=== PATIENT | male | born 1945 | race Caucasian/White ===

== ENCOUNTER 2018-09-07 12:05 | Inpatient (IN) ==
[~2018-09-07 12:05] MED LIST: NS 1,000 ML IV ONE; TYLENOL PO PRN; ZOFRAN IV PRN
[2018-09-07] MEDS ORDERED: PHENERGAN IV PRN (12:35)
[2018-09-07] MEDS ORDERED: SODIUM CHLORIDE 0.9% INJ PRN (12:35)
--- NOTE | 2018-09-07 12:56 | Diag Imaging Result Doc PS360 ---
EXAM: FLAT/UPRIGHT ABD/1 VIEW CHEST 09/07/2018 HISTORY: abd pain TECHNIQUE: Flat and upright abdomen with PA chest COMMENT: There are surgical clips in the right upper quadrant. There is stool throughout the colon. The small bowel is not distended. The stomach is not distended. There is calcification in the seminal vesicles bilaterally. There is no evidence of organomegaly or mass. There are no previous studies. There is no evidence of acute disease in the chest. IMPRESSION: Constipation. Otherwise nonspecific abdomen. Electronically signed by Roberto Bryant 09/07/2018 12:54 PM
--- NOTE | 2018-09-07 13:34 | Diag Imaging Result Doc PS360 ---
EXAM: CT ABDOMEN/PELVIS W/O CONTRAST 09/07/2018 HISTORY: abd pain TECHNIQUE: This exam was performed using automated exposure control, adjustment of mA or kV according to patient size, and/or use of iterative reconstruction technique. COMMENT: There are no previous studies available for comparison. The visualized portion of the chest is unremarkable. The spleen is not enlarged. There is no evidence of hydronephrosis or nephrolithiasis. There has been cholecystectomy. There is extensive diverticulosis of the colon. There is stool throughout the colon. There is inflammatory change in the fat surrounding the distal descending/proximal sigmoid colon. No definite discrete abscess is present. There is no evidence of extraluminal gas. The small bowel is not distended. There is no evidence of abdominal aortic aneurysm. No abnormal fluid collections are present there is no evidence of appendicitis. The urinary bladder is moderately particularly distended. There is a fat-containing right inguinal hernia. 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 There are degenerative facet and disc changes in the lumbar spine. IMPRESSION: Constipation. Diverticulitis in the distal descending/proximal sigmoid colon. Electronically signed by Roberto Bryant 09/07/2018 1:32 PM
[2018-09-07 14:12] LABS: BASO# 0.07 X1000 (0.0-0.2); BASO% 0.6 % (0.0-0.8); EOS# 0.33 X1000 (0.0-0.7); EOS% 2.9 % (0.0-10.0); HEMATOCRIT 39.4 % (42.0-52.0); HEMOGLOBIN 13.4 g/dL (14.0-18.0); IMM GRAN# 0.02 X1000 (0.0-0.04); IMM GRAN% 0.2 % (0.0-0.5); LYMPH# 2.61 X1000 (1.2-3.4); LYMPH% 23.2 % (20.5-51.1); MCH 29.9 PG (27-31); MCV 87.9 FL (81-99); MONO# 0.85 X1000 (0.11-0.59); MONO% 7.5 % (1.7-9.3); MPV 9.1 FL (7.4-10.4); NEUT# 7.39 X1000 (1.4-6.5); NEUT% 65.6 % (42.2-75.2); PLT 375 X1000 (130-400); RBC 4.48 XMIL (4.7-6.1); RDW 12.6 % (11.5-14.5); WBC 11.27 X1000 (4.8-10.8)
[2018-09-07 14:31] LABS: ALB/GLOB RATIO 1.2; ALBUMIN 4.4 g/dL (3.5-5.0); CALCIUM 10.4 mg/dL (8.8-10.2); CREATININE 1.3 mg/dL (0.7-1.2); POTASSIUM 3.7 mmol/L (3.5-5.1); TOTAL BILIRUBIN 0.78 mg/dL (0.20-1.00)
[2018-09-07] MEDS: DILAUDID IV PRN ×2 (14:33→21:29)
[2018-09-07] MEDS: LEVAQUIN 750 MG/D5W 750 MG/150 ML IVPB IV SCH (14:35)
[2018-09-07] MEDS: FLAGYL 500 MG/NS 500 MG/100 ML IVPB IV SCH ×2 (16:14→20:34)
[2018-09-07] MEDS ORDERED: TEARISOL OPH SOLUTION BOTH EYES PRN (18:45)
[2018-09-07] MEDS ORDERED: PATIENT'S OWN MED OPH PRN (18:45)
[2018-09-07] MEDS ORDERED: DULCOLAX PR ONE (18:50)
[2018-09-07 19:24] LABS: URINE SOURCE CLEAN CATCH
[2018-09-07 19:27] LABS: BILIRUBIN URINE NEGATIVE (NEGATIVE); BLOOD URINE NEGATIVE (NEGATIVE); COLOR YELLOW; GLUCOSE URINE NEGATIVE (NEGATIVE); KETONE URINE TRACE mg/dL (NEGATIVE); LEUKOCYTES URINE NEGATIVE (NEGATIVE); NITRITE URINE NEGATIVE (NEGATIVE); PROTEIN URINE NEGATIVE (NEGATIVE); SP GRAVITY URINE 1.022; TURBIDITY URINE CLEAR (CLEAR); UROBILINOGEN URINE 4 mg/dL (NORMAL)
[2018-09-07 19:28] LABS: UR EPITHELIAL CELLS <10 /HPF (<10); URINE BACTERIA NEGATIVE /HPF; URINE RBC <10 /HPF (<10); URINE WBC <10 /HPF (<10)
[2018-09-07] MEDS: NS + KCL 20 MEQ 1,000 ML IV SCH (20:33)
[2018-09-07] MEDS ORDERED: AMBIEN PO SCH (21:00)
[2018-09-08] MEDS: FLAGYL 500 MG/NS 500 MG/100 ML IVPB IV SCH ×3 (04:55→20:33)
[2018-09-08] MEDS: NS + KCL 20 MEQ 1,000 ML IV SCH ×2 (04:55→17:05)
--- NOTE | 2018-09-08 05:13 | HISTORY AND PHYSICAL ---
CHIEF COMPLAINT: Abdominal pain. HISTORY OF PRESENT ILLNESS: The patient is a 73-year-old white male followed in my medical practice. He comes in with complaints of left lower quadrant pain beginning 5 days ago after he was visiting with friends and ate a [place] dish which was made with goat meat and bulgur wheat from the [place], which is quite hard to digest. He has had some off and on fever, some hematochezia with mucus, black stools, and some difficulty with constipation. Last colonoscopy was in May of [address] Moreau revealed severe diffuse diverticulosis, and he has had some off and on colon polyps and was scheduled for a repeat colonoscopy in May of 2020. His other friends that he ate with have not gotten ill after eating a meal. The patient had 1 episode of emesis severe last night. MEDICATIONS PRIOR TO ADMISSION: Albuterol MDI 2 puffs q.4 hours p.r.n. wheezes, Ambien 10 mg p.o. at bedtime, Spiriva Handy haler 1 puff daily, Synthroid 125 mcg p.o. daily, Trilipix 135 mg p.o. daily, Vasotec 2.5 mg p.o. b.i.d., Zetia 10 mg p.o. daily. ALLERGIES: To Terramycin, Augmentin, Tetracycline and sulfa. PAST MEDICAL HISTORY: 1. Hypercholesterolemia with intolerance to statin drugs. 2. Erectile dysfunction. 3. Osteoarthritis. 4. Hypothyroidism. 5. Diverticulosis. 6. Reactive airway disease. 7. Coronary artery disease. 8. Ischemic cardiomyopathy. PAST SURGICAL HISTORY: 1. Hemorrhoid surgery in 1998. 2. Bilateral inguinal hernia repair, and then a repeat left inguinal hernia repair dating back to 1994. 3. Left shoulder surgery/arthroscopy in 1988. 4. Bilateral thumb surgery secondary to osteoarthritis. 5. Blepharoplasty in December of 2006. 6. Laparoscopic cholecystectomy in November of 2008. 7. Left jaw surgery in 2010. IMMUNIZATIONS: Pneumovax 23 given 04/23/2011. Last tetanus in April of 2017. Zostavax on 04/23/2009. Shingrix first dose given on 01/06/2018. Prevnar 13 given in October of 2015. FAMILY HISTORY: Notable for father with rheumatic heart disease. Mother in generally good health. No diabetes or cancer in the family. No hypertension, MIs or strokes. No mental illness. SOCIAL HISTORY: The patient lives in [place]. He is and has 3 children. He is retired from [email or web address] in 2010. He has about a [id number] history of smoking but quit remotely. He drinks about a six-pack of beer per week. REVIEW OF SYSTEMS: Negative except as above. PHYSICAL EXAMINATION: VITAL SIGNS: Height 5 feet 8 inches, weight 166 pounds, blood pressure 122/84, pulse 100, BMI 26, temperature axillary 95. GENERAL: Quite ill-appearing white male who is bent over in pain with left lower quadrant pain. SKIN: Warm and dry. No rashes. HEENT: NC/AT. PERRL. EOMI. Sclerae are anicteric. Oropharynx no redness. Tongue in the midline. NECK: No LA, TMG, JVD, bruits. CARDIOVASCULAR: RRR without murmur. LUNGS: CTA. BACK: No CVA tenderness. ABDOMEN: Active bowel sounds. Moderate to severe tenderness left mid lower quadrant. No mass or organomegaly. Mild guarding. No rebound. GENITOURINARY/RECTAL: Deferred. EXTREMITIES: No calf tenderness, cords or edema. NEUROLOGIC: Cranial nerves are intact. No focal deficits. ASSESSMENT: 1. Left lower quadrant abdominal pain, rule out diverticulitis, rule out perforated diverticulum, rule out diverticular abscess. 2. Ischemic cardiomyopathy. 3. Coronary artery disease. 4. Reactive airway disease. 5. Diverticulosis. 6. Hypothyroidism. 7. Osteoarthritis. 8. Erectile dysfunction. 9. Hypercholesterolemia, intolerant to treatment. PLAN: At this time we will admit the patient to the hospital. Give him IV hydration with normal saline bolus, checks CTRSS and also check flat and upright of the abdomen. Check extensive labs to include lactate level, amylase, lipase, CMP, CBC, blood cultures x2. We will also check UA with C and S, give him Dilaudid for pain control, Phenergan for nausea and vomiting. We will start him on Levaquin and Flagyl, and await studies. cc: Huey Mukherjee MD
[2018-09-08] MEDS: ASPIRIN PO SCH (08:29)
[2018-09-08] MEDS: VENTOLIN HFA INH SCH (08:39)
[2018-09-08] MEDS: SPIRIVA INH SCH (08:40)
[2018-09-08] MEDS: LEVAQUIN 750 MG/D5W 750 MG/150 ML IVPB IV SCH (11:27)
--- NOTE | 2018-09-08 13:33 | PROGRESS NOTE ---
DATE: 09/08/2018 SUBJECTIVE: Patient overall feeling much better. Some mild pain in the left lower quadrant, improved with the Dilaudid. OBJECTIVE: Vital signs: Afebrile. Pulse 84, respirations 16, blood pressure 119/66, O2 saturation on room air 100%. CV: RRR without murmur. Lungs: CTA. Abdomen: Soft. Active bowel sounds. Mild tenderness left lower quadrant. No mass or organomegaly. No rebound or guarding. Extremities: No calf tenderness, cords, or edema. DIAGNOSTIC DATA: Lab data and CT scans reviewed from yesterday. Chest x-ray was negative. ASSESSMENT: 1. Diverticulitis, left sigmoid area. 2. Constipation. 3. Ischemic cardiomyopathy. 4. Coronary artery disease. 5. Reactive airway disease. 6. Diverticulosis. 7. Hypothyroidism. 8. Osteoarthritis. 9. Erectile dysfunction. 10. Hypercholesterolemia, intolerant to medications. PLAN: Continue IV Levaquin and Flagyl. Advance to clear liquids. We will place him on prophylactic Lovenox due to inactivity. Continue to treat pain with Dilaudid, nausea with Phenergan. Repeat labs to include CBC with differential and BMP in the morning, with hopeful discharge in about 48 hours if he continues on present course of improvement. cc: Huey Mukherjee MD
[2018-09-08] MEDS ORDERED: AMBIEN PO SCH (21:00)
[2018-09-09] MEDS: FLAGYL 500 MG/NS 500 MG/100 ML IVPB IV SCH ×2 (05:19→14:32)
[2018-09-09] MEDS: SPIRIVA INH SCH (07:32)
[2018-09-09] MEDS: VENTOLIN HFA INH SCH (07:32)
[2018-09-09 07:43] LABS: BASO# 0.04 X1000 (0.0-0.2); BASO% 0.6 % (0.0-0.8); EOS# 0.38 X1000 (0.0-0.7); EOS% 5.2 % (0.0-10.0); HEMATOCRIT 37.6 % (42.0-52.0); HEMOGLOBIN 12.7 g/dL (14.0-18.0); IMM GRAN# 0.02 X1000 (0.0-0.04); IMM GRAN% 0.3 % (0.0-0.5); LYMPH# 2.08 X1000 (1.2-3.4); LYMPH% 28.7 % (20.5-51.1); MCH 30.1 PG (27-31); MCHC 33.8 g/dL (33-37); MCV 89.1 FL (81-99); MONO# 0.51 X1000 (0.11-0.59); NEUT# 4.21 X1000 (1.4-6.5); NEUT% 58.2 % (42.2-75.2); PLT 364 X1000 (130-400); RBC 4.22 XMIL (4.7-6.1); RDW 12.7 % (11.5-14.5); WBC 7.24 X1000 (4.8-10.8)
[2018-09-09 08:09] LABS: CALCIUM 9.2 mg/dL (8.8-10.2); CREATININE 1.2 mg/dL (0.7-1.2); POTASSIUM 3.7 mmol/L (3.5-5.1)
[2018-09-09] MEDS: ASPIRIN PO SCH (08:25)
[2018-09-09] MEDS: NS + KCL 20 MEQ 1,000 ML IV SCH (08:26)
[2018-09-09] MEDS ORDERED: LOVENOX SUBQ SCH (09:00)
[2018-09-09] MEDS: LEVAQUIN 750 MG/D5W 750 MG/150 ML IVPB IV SCH (12:00)
[2018-09-09] MEDS ORDERED: SALINE LOCK IV FLUID XX ONE (13:23)
--- NOTE | 2018-09-09 13:57 | PROGRESS NOTE ---
DATE: 09/09/2018 SUBJECTIVE: Patient doing much better. He is stooling without difficulty. Abdominal pain has decreased markedly. He is tolerating clear liquids well. No nausea or vomiting. OBJECTIVE: Afebrile. Vital signs stable.CV: RRR without murmur. Lungs: CTA. Abdomen: Soft, active bowel sounds. Very minimal tenderness, left lower quadrant. No mass or organomegaly. No rebound or guarding. Extremities: No calf tenderness, cords or edema. White count normal at 7.24, hemoglobin 12.7, platelets 364,000. Sodium 141, potassium 3.7, chloride 106, CO2 23, BUN 8, creatinine 1.2, glucose 99, calcium 9.2. ASSESSMENT: 1. Diverticulitis, left sigmoid. 2. Constipation, improved. 3. Ischemic cardiomyopathy. 4. Coronary artery disease. 5. Reactive airway disease. 6. Diverticulosis. 7. Hypothyroidism. 8. Osteoarthritis. 9. Erectile dysfunction. 10. Hypercholesterolemia, intolerant to medications. PLAN: We will saline lock IV. Ambulate patient. Increase to a GI soft diet and if he tolerates that well, discharge him home late in the evening. We will keep him on oral Flagyl and Levaquin for a total of 2 weeks and he will follow up in my office in 7 to 10 days. Candor 7.5, 12 of those given in case he has pain. Otherwise, he will resume his home medications. cc: Huey Mukherjee MD
[2018-09-09 16:13] VITALS: BP 116/50
== END 2018-09-09 19:41 | disposition home or self-care (01) | DRG 392 ==
LOC: 3N 12:47
PROVIDERS: ADMIT Family Medicine; ATTEND Family Medicine
CPT/HCPCS: 74022; 74176; 80048; 80053; 81001; 82150; 82948; 83605; 83690; 85025; 87040; 94640; 94761; A9270; J1170; J1650; J1956; J3480; J7030; S0030; XXXXX